=== PATIENT | female | born 1960 | race Caucasian/White ===

== ENCOUNTER 2018-03-06 02:52 | Emergency (ER) | payer MEDICAID ==
[2018-03-06] MEDS: predniSONE 20 MG TAB PO (03:36)
[2018-03-06] MEDS: ALBUTEROL 0.083% (NEB) 2.5 MG/3 ML AMP NEB (03:44)
== END 2018-03-06 04:47 | disposition home or self-care (01) ==
LOC: E/R 02:52
DX: J45.901 Unspecified asthma with (acute) exacerbation (principal); E11.9 Type 2 diabetes mellitus without complications
CPT/HCPCS: 94664; 99283-25